=== PATIENT | male | born 1940 | race Caucasian/White ===

== ENCOUNTER 2018-11-17 05:43 | Day surgery (SDC) | payer MEDICARE, MEDICAID ==
[~2018-11-17] VITALS: Ht 177.8 cm; Wt 86.4 kg
[2018-11-17] VITALS (15 sets, daily range): BP systolic 131–166; BP diastolic 56–85
[~2018-11-17 05:43] MED LIST: ADV50500 IH; ALBU18HF2 INH; ASPI-1265 PO; BENZ-38 PO; DIAZ5TAB4 PO; LISI-600 PO; MAGN400C PO; MONT10TA21 PO; MULT-1085 PO; OMEG1CAP PO; PRAV40TA3 PO; fish oil PO
[2018-11-17] MEDS ORDERED: fentaNYL/PF 50MCG/1 ML 2ML syringe IV ONE (06:11)
[2018-11-17] MEDS ORDERED: normal saline 1000ml 1,000 ML IV SCH (06:15)
[2018-11-17] MEDS ORDERED: MIDAZolam 5mg/ml 2ml vial IV ONE (06:15)
[2018-11-17] MEDS ORDERED: MAGN200T5 PO (06:35)
[2018-11-17] MEDS ORDERED: LISI-604 PO (06:35)
[2018-11-17] MEDS ORDERED: RIVA20TA PO (06:35)
[2018-11-17 06:36] LABS: BASOPHILS # (AUTO) 0.1 X10'3 (0-0.2); BASOPHILS % (AUTO) 0.7 % (0-1); EOSINOPHILS # (AUTO) 0.8 X10'3 (0-0.9); EOSINOPHILS % (AUTO) 9.1 % (0-6); HEMATOCRIT 39.8 % (42.0-52.0); HEMOGLOBIN 13.5 g/dl (14.0-17.9); LYMPHOCYTES # (AUTO) 2.6 X10'3 (1.1-4.8); LYMPHOCYTES % (AUTO) 28.7 % (21-51); MEAN CORPUSCULAR HEMOGLOBIN 32.1 PG (27.0-31.0); MEAN CORPUSCULAR HGB CONC 33.8 g/dL (33.0-36.5); MEAN CORPUSCULAR VOLUME 94.8 FL (78-98); MEAN PLATELET VOLUME 7.1 FL (7.4-10.4); MONOCYTES # (AUTO) 0.9 X10'3 (0-0.9); MONOCYTES % (AUTO) 9.4 % (2-12); NEUTROPHILS # (AUTO) 4.7 X10'3 (1.8-7.7); NEUTROPHILS % (AUTO) 52.1 % (42-75); PLATELET COUNT 239 X10'3 (140-440); RED CELL DISTRIBUTION WIDTH 13.9 % (11.5-14.5)
[2018-11-17 06:50] LABS: ALBUMIN 4.1 G/DL (3.4-5.0); ANION GAP 12 (8-16); BLOOD UREA NITROGEN 36 MG/DL (7-18); BUN/CREATININE RATIO 28.1 (5.4-32.0); CALCIUM 9.5 MG/DL (8.5-10.1); CHLORIDE 104 MMOL/L (99-107); CREATININE 1.28 MG/DL (0.60-1.10); GLUCOSE 92 MG/DL (70-104); MAGNESIUM 2.2 MG/DL (1.5-2.4); SODIUM 139 MMOL/L (135-145); TOTAL CARBON DIOXIDE 22.9 MMOL/L (24-32); eGFR 54 ML/MIN
[2018-11-17 06:55] LABS: POTASSIUM 4.3 MMOL/L (3.5-5.1)
[2018-11-17] MEDS ORDERED: amiodarone 150mg/dext, iso-os 100 ML IV ONE ×2 (09:05→09:40)
[2018-11-17] MEDS ORDERED: rivaroxaban 20mg tablet PO ONE (09:05)
== END 2018-11-17 10:47 | disposition home or self-care (01) ==
LOC: SSTAY O 05:43
PROVIDERS: ATTEND Internal Medicine Cardiovascular Disease
DX: I48.91 Unspecified atrial fibrillation (principal); I10 Essential (primary) hypertension; J44.9 Chronic obstructive pulmonary disease, unspecified
CPT/HCPCS: 36415; 80048; 83735; 85025; 85610; 92960; 93005; J0282; J2250; J3010; J7030

== ENCOUNTER 2022-10-10 15:19 | Outpatient (CLI) | payer MEDICARE, MEDICAID ==
[~2022-10-10] VITALS: Ht 175.3 cm; Wt 77.1 kg
[~2022-10-10 15:19] MED LIST changes: -BENZ-38 PO; -DIAZ5TAB4 PO; -LISI-600 PO; +LISI5TAB22 PO; +MAGN200T5 PO; -MAGN400C PO; +MONT-47 PO; -MONT10TA21 PO; -OMEG1CAP PO; +OMEG1CAP61 PO; +RIVA20TA PO; -fish oil PO
[2022-10-10] MEDS ORDERED: albuterol 2.5 MG/3 ML nebule NEB PRN (15:55)
== END 2022-10-10 23:59 | disposition home or self-care (01) ==
LOC: RT 15:19
PROVIDERS: ATTEND Internal Medicine Pulmonary Disease
DX: J44.9 Chronic obstructive pulmonary disease, unspecified (principal); R94.2 Abnormal results of pulmonary function studies
CPT/HCPCS: 85018; 94060; 94727; 94729; 94760